=== PATIENT | male | born 1975 | race Caucasian/White ===

== ENCOUNTER 2017-10-07 20:21 | Emergency (ER) | payer BC ==
[~2017-10-07] VITALS: Ht 177.8 cm; Wt 74.8 kg
[~2017-10-07 20:21] MED LIST: BENTYL10 MG PO; FLEXERIL10 MG PO; ZOFRAN4 MG PO
[2017-10-07 20:53] LABS: HEMATOCRIT 39.9 % (38.0-50.0); MCHC 34.3 G/DL (30.0-36.0); MCV 87.3 FL (86-99); PLATELET COUNT 306 K/uL (156-360); RBC DIS.WIDTH-CV 12.4 % (11.8-14.6); RBC DIS.WIDTH-SD 39.6 % (39-53); RED BLOOD COUNT 4.57 M/uL (4.00-5.50)
[2017-10-07 21:02] LABS: CHLORIDE 104 mEq/L (99-109); POTASSIUM 3.8 mEq/L (3.7-5.4); SODIUM 138 mEq/L (136-147)
[2017-10-07 21:03] LABS: GLUCOSE 96 mg/dL (70-99)
[2017-10-07 21:05] LABS: ANION GAP 10 MEQ/L (2-14)
[2017-10-07 21:07] LABS: GFR ESTIMATE (CALCULATED) > 59 mL/min/
[2017-10-07 21:08] LABS: UREA NITROGEN (BUN) 10 mg/dL (9-23)
[2017-10-07 21:28] LABS: ADD MIUA? NO; BILIRUBIN NEGATIVE; BLOOD NEGATIVE; COLOR STRAW ((YELLOW)); GLUCOSE (STRIP) NEGATIVE; KETONES NEGATIVE; LEUKOCYTES NEGATIVE; NITRITE NEGATIVE; PROTEIN (STRIP) NEGATIVE; SPECIFIC GRAVITY 1.009 (1.000-1.030); UROBILINOGEN 0.2 MG/DL (0.2-1.0)
[2017-10-07] MEDS ORDERED: PERCOCET 5/31 TABLET PO (22:45)
[2017-10-07] MEDS ORDERED: ZOFRAN ODT4 MG PO (22:45)
[2017-10-07 23:11] VITALS: BP 106/74
== END 2017-10-07 23:13 | disposition home or self-care (01) ==
LOC: EME 20:21
PROVIDERS: Nurse Practitioner Family
DX: S30.22XA Contusion of scrotum and testes, initial encounter (principal); X58.XXXA Exposure to other specified factors, initial encounter; R11.0 Nausea; Z87.891 Personal history of nicotine dependence
CPT/HCPCS: 76870; 80048; 81003; 85027; 99281; 99284

== ENCOUNTER 2017-11-28 00:40 | Emergency (ER) | payer BC ==
[~2017-11-28] VITALS: Ht 177.8 cm; Wt 75.4 kg
[~2017-11-28 00:40] MED LIST changes: +PERCOCET 5/31 TABLET PO; +ZOFRAN ODT4 MG PO
[2017-11-28 01:13] LABS: HEMOGLOBIN 13.7 G/DL (12.5-16.6); MCH 30.4 PG (29.0-34.0); MCHC 34.3 G/DL (30.0-36.0); MCV 88.9 FL (86-99); PLATELET COUNT 271 K/uL (156-360); RBC DIS.WIDTH-CV 12.3 % (11.8-14.6); WHITE BLOOD COUNT 8.5 K/uL (4.1-10.2)
[2017-11-28 01:21] LABS: CHLORIDE 102 mEq/L (99-109); POTASSIUM 3.6 mEq/L (3.7-5.4); SODIUM 140 mEq/L (136-147)
[2017-11-28 01:23] LABS: GLUCOSE 101 mg/dL (70-99)
[2017-11-28 01:27] LABS: CREATININE 1.1 mg/dL (0.6-1.3); GFR ESTIMATE (CALCULATED) > 59 mL/min/ (58.99-99999)
[2017-11-28 01:28] LABS: UREA NITROGEN (BUN) 21 mg/dL (9-23)
[2017-11-28 01:33] LABS: TROP-I INTERPRETATION NEGATIVE; TROPONIN-I < 0.01 ng/mL (0.0-0.30)
[2017-11-28 05:08] LABS: TROP-I INTERPRETATION NEGATIVE; TROPONIN-I < 0.01 ng/mL (0.0-0.30)
[2017-11-28 08:24] VITALS: BP 124/65
[2017-11-28 09:21] LABS: ALBUMIN 4.2 g/dL (3.2-4.8)
[2017-11-28 09:26] LABS: ALKALINE PHOSPHATASE 32 IU/L (3-129); TOTAL BILIRUBIN 0.5 mg/dL (0.0-1.0)
[2017-11-28 09:29] LABS: AST (GOT) 19 IU/L (2-34)
[2017-11-28 09:30] LABS: ALT (GPT) 21 IU/L (3-49)
[2017-11-28 10:38] LABS: THYROTROPIN (TSH) 5.7 MIU/L (0.4-5.5)
== END 2017-11-28 08:25 | disposition home or self-care (01) ==
LOC: RME 00:40 → EME 00:40 → RME 08:25
PROVIDERS: Emergency Medicine
DX: R07.89 Other chest pain (principal); E78.5 Hyperlipidemia, unspecified; Z87.891 Personal history of nicotine dependence
CPT/HCPCS: 71046; 80048; 80053; 84443; 84484; 85027; 93005; 99281; 99284